=== PATIENT | male | born 1970 ===

== ENCOUNTER 2019-11-29 08:57 | Outpatient (CLI) | payer OTHER | END 2019-11-29 08:59 | disposition home or self-care (01) | LOC: SONOGRAMA 08:57 | PROVIDERS: ATTEND Internal Medicine Gastroenterology | DX: E04.1 Nontoxic single thyroid nodule (principal); E04.8 Other specified nontoxic goiter; R16.0 Hepatomegaly, not elsewhere classified ==

== ENCOUNTER 2021-07-21 10:21 | Outpatient (CLI) | payer OTHER | END 2021-07-21 10:37 | disposition home or self-care (01) | LOC: SONOGRAMA 10:21 | PROVIDERS: ATTEND Family Medicine | DX: E04.1 Nontoxic single thyroid nodule (principal) ==

== ENCOUNTER 2022-07-21 06:30 | Day surgery (SDC) | payer OTHER ==
[~2022-07-21] VITALS: Ht 175.3 cm; Wt 86.2 kg
[~2022-07-21 06:30] MED LIST: CRESTOR5 MG PO; LINZESS72 MCG PO
== END 2022-07-21 15:35 | disposition home or self-care (01) ==
LOC: CIR.AMB 06:30
PROVIDERS: ATTEND Orthopaedic Surgery Hand Surgery
DX: D16.12 Benign neoplasm of short bones of left upper limb (principal); E78.49 Other hyperlipidemia; Z20.822 Contact with and (suspected) exposure to COVID-19